=== PATIENT | female | born 1930 | race Caucasian/White ===

== ENCOUNTER 2017-03-15 00:09 | Emergency (ER) | payer SELFPAY ==
[~2017-03-15] VITALS: Ht 157.5 cm; Wt 72.6 kg
--- NOTE | 2017-03-15 00:37 | NUR ---
Pt ambulated to room with steady gait. Pt was at the eye doctor this am and had a rapid elevation in blood pressure from 114 up to 177 systolic, was told they unable to have her eye procedure done due to her pressure. Pt has no history of htn. Pt denies BLEVINS, denies dizziness, denies any physical complaints. Here for concerned htn. BP WNL at time of assesment. Pt resting in position of comfort for self, awaiting further eval.
[2017-03-15 01:25] LABS: BASOPHILS # (AUTO) 0.1 K/uL (0.0-8.0); BASOPHILS % (AUTO) 0.9 % (0.0-2.0); EOSINOPHILS # (AUTO) 0.3 K/uL (0.0-0.7); EOSINOPHILS % (AUTO) 3.9 % (0.0-7.0); HEMATOCRIT 38.8 % (37-47); HEMOGLOBIN 13.1 G/DL (12.0-16.0); LYMPHOCYTES % (AUTO) 27.7 % (20.5-51.5); MEAN CORPUSCULAR HEMOGLOBIN 32.7 UUG (27.0-31.0); MEAN CORPUSCULAR HGB CONC 34 g/dL (32.0-37.0); MEAN CORPUSCULAR VOLUME 96.7 FL (81.0-99.0); MONOCYTES # (AUTO) 0.7 K/UL (0.1-1.30); MONOCYTES % (AUTO) 9.9 % (0.0-11.0); NEUTROPHILS # (AUTO) 4.2 K/UL (1.8-8.9); NEUTROPHILS % (AUTO) 57.6 % (38.5-71.5); PLATELET COUNT (AUTO) 254 K/UL (150-450); RED BLOOD CELL COUNT(AUTO) 4.01 MIL/UL (4.2-5.4); WHITE BLOOD COUNT (AUTO) 7.3 K/UL (4.0-11.2)
[2017-03-15 01:28] LABS: CARBON DIOXIDE 31 mmol/L (21-32); CHLORIDE 107 mmol/L (98-107); CREATININE 0.8 mg/dL (0.6-1.3); GLUCOSE 101 mg/dL (74-106); POTASSIUM 3.9 mmol/L (3.5-5.1); UREA NITROGEN, BLOOD 17 mg/dL (7-18)
--- NOTE | 2017-03-15 01:34 | NUR ---
Pt to CT via w/c
[2017-03-15 01:41] LABS: ALANINE AMINOTRANSFERASE 24 U/L (14-59); ALKALINE PHOSPHATASE 95 U/L (50-136); ASPARTATE AMINOTRANSFERASE 20 U/L (15-37); BILIRUBIN,DIRECT 0.1 mg/dL (0.0-0.2); BILIRUBIN,TOTAL 0.3 mg/dL (0.2-1.0); TOTAL PROTEIN, SERUM 7.4 g/dL (6.4-8.2)
--- NOTE | 2017-03-15 01:52 | NUR ---
Pt returned from CT via w/c. Resting in position of comfort for self. Resp even and unlabored. No complaints at this time
[2017-03-15 02:32] VITALS: BP 159/79
--- NOTE | 2017-03-15 02:32 | NUR ---
Pt stable for discharge per MD. Pt and family given ACI. Both verbalized understanding of dc instructions. Pt ambulated out of er with steady gait and ride home
== END 2017-03-15 02:33 | disposition home or self-care (01) ==
LOC: ER 00:16
DX: J18.9 Pneumonia, unspecified organism (principal); I10 Essential (primary) hypertension; F10.20 Alcohol dependence, uncomplicated; F17.200 Nicotine dependence, unspecified, uncomplicated
CPT/HCPCS: 36415; 70030-TC; 71010; 71250; 85025; 85730; A4663